=== PATIENT | male | born 1990 | race Asian ===

== ENCOUNTER 2017-02-05 15:22 | Emergency (ER) | payer OTHER ==
[~2017-02-05] VITALS: Ht 165.1 cm; Wt 79.4 kg
[2017-02-05 15:23] VITALS: BP 159/91
[2017-02-05] MEDS ORDERED: TRAM50TA2 PO (15:32)
[2017-02-05] MEDS ORDERED: MELO15TA4 PO (15:32)
== END 2017-02-05 16:01 | disposition home or self-care (01) ==
LOC: M ED 15:47
DX: M25.561 Pain in right knee (principal)

== ENCOUNTER → 2017-02-07 | Outpatient (CLI) | payer OTHER ==
[~2017-02-07] MED LIST: MELO15TA4 PO; TRAM50TA2 PO
--- NOTE | 2017-02-07 09:40 | REP ---
MRI RIGHT KNEE: TECHNIQUE: Axial proton density fat saturation, sagittal proton density T2 STIR, water excitation, coronal proton density, proton density fat saturation. There is a discoid lateral meniscus. There is no meniscal tear. The cruciate and collateral ligaments are intact. Extensor mechanism is intact. No osteochrondral defects are seen. There is normal marrow signal with no bone marrow edema or occult fracture. There is a small joint effusion. There is a suprapatellar plica. I do not see evidence of a popliteal cyst. Medial and lateral patellar retinula are intact. IMPRESSION: Discoid lateral meniscus, a normal variant which can cause pain. Small joint effusion. No evidence of meniscal tear or ligament tear. Suprapatellar plica noted. Signed by Roger Avelar MD 02/08/2017 05:10 P
== END ==
LOC: M RAD 07:02
PROVIDERS: ATTEND Physician Assistant
DX: M25.561 Pain in right knee (principal)